=== PATIENT | female | born 1995 | race Caucasian/White ===

== ENCOUNTER 2022-04-24 13:57 | Emergency (ER) | payer OTHER ==
[2022-04-24] MEDS ORDERED: Bupivacaine 0.5% 10 ML SDV INJECT ONE (14:23)
[2022-04-24] MEDS ORDERED: Lidocaine 1% 5 ML VIAL INJECT ONE (14:23)
[2022-04-24] MEDS ORDERED: Diphtheria,Pertussis(Acell),Tetanus Vaccine 0.5 ML Syringe IM ONE (16:05)
[2022-04-24 21:14] VITALS: BP 128/84; PULSE 68
== END 2022-04-24 16:42 | disposition home or self-care (01) ==
LOC: MERGE 13:57 → LL.ED 13:57
DX: S61.200A Unspecified open wound of right index finger without damage to nail, initial encounter (principal); Z23 Encounter for immunization; W26.8XXA Contact with other sharp object(s), not elsewhere classified, initial encounter; Y99.0 Civilian activity done for income or pay; Y92.000 Kitchen of unspecified non-institutional (private) residence as the place of occurrence of the external cause
CPT/HCPCS: 64450; 90471; 90715; 99282-25; J3490

== ENCOUNTER → 2022-06-12 | Emergency (ER) | payer OTHER ==
[~2022-06-12] MED LIST: Ibuprofen 600 MG Tab ONE; SUMAtriptan 6 MG/0.5 ML SDV ONE
[2022-07-09 06:10] LABS: RESPIRATORY SYNCYTIAL VIR NAA NEGATIVE (NEGATIVE)
[2022-07-09 06:11] LABS: CORONAVIRUS COVID-19 NAA POSITIVE (NEGATIVE)
== END ==
LOC: LL.ED 08:00
DX: U07.1 COVID-19 (principal); G43.909 Migraine, unspecified, not intractable, without status migrainosus
CPT/HCPCS: 0241U; 96372; 99284; A9270-GY; J3030